=== PATIENT | male | born 1985 | race Caucasian/White ===

== ENCOUNTER → 2024-01-18 11:06 | Outpatient (CLI) | payer OTHER, SELFPAY ==
--- NOTE | 2024-01-18 11:08 | DI.MRI.S_ITS ---
PROCEDURE: MR SHOULDER RT WO CON INDICATIONS: Bicipital tendinitis, right shoulder TECHNIQUE: Noncontrast oblique coronal T2 fast spin echo with fat saturation, oblique sagittal T1 spin echo and T2 fast spin echo with fat saturation, axial T1 spin echo and T2 fast spin echo with fat saturation through the shoulder. COMPARISON: None. FINDINGS: Image quality: Excellent. Rotator cuff: the supraspinatus and the infraspinatus are unremarkable. The teres minor is unremarkable. The subscapularis is unremarkable. No muscle edema or fatty atrophy. Bones and bursae: Mild to moderate degenerative changes of the acromioclavicular joint. Type 2 acromion. No os acromial. Trace subacromial/subdeltoid bursitis. Mild subchondral cystic changes in the greater tuberosity, reactive. No focal chondral defect in the glenohumeral joint. Capsule and soft tissues: Tear of the anterior superior labrum with a 3 mm paralabral cyst (series 6, image 9). Tear of the posterior labrum as well. Mild tenosynovitis of the extra-articular biceps tendon. The intra-articular biceps tendon is intact. No significant glenohumeral effusion. Thickening of the glenohumeral ligament, concerning for adhesive capsulitis. IMPRESSION: 1. Xcao-ge-mbwrriib degenerative changes of the acromioclavicular joint. Trace subacromial/subdeltoid bursitis. 2. Labral tear with a small paralabral cyst. 3. Mild tenosynovitis of the extra-articular biceps tendon. 4. Findings suggestive of adhesive capsulitis. Dictated by: Patricia Mejía M.D. on 01/18/2024 at 19:39 Approved by: Patricia Mejía M.D. on 01/18/2024 at 19:46
== END ==
PROVIDERS: PCP Family Medicine; Referring Provider Physical Medicine & Rehabilitation Pain Medicine; Visit Provider Physical Medicine & Rehabilitation Pain Medicine
DX: S43.431A Superior glenoid labrum lesion of right shoulder, initial encounter (principal); M75.21 Bicipital tendinitis, right shoulder; M65.811 Other synovitis and tenosynovitis, right shoulder
CPT/HCPCS: 73221

== ENCOUNTER → 2024-02-16 14:43 | Outpatient (CLI) | payer OTHER, SELFPAY ==
--- NOTE | 2024-02-16 14:45 | DI.RAD.S_ITS ---
PROCEDURE: XR LUMBAR SPINE 2-3V INDICATIONS: History of fall in 2020; chronic low back pain TECHNIQUE: 3 views of the lumbar spine were acquired. COMPARISON: None. FINDINGS: Bones: 5 fxo-bve-igwryxj vertebrae are present. There is normal bony alignment. No vertebral body compression fractures. No suspicious bony lesions. Soft tissues: Overlying bowel gas pattern is normal. Large stool burden. No suspicious soft tissue calcifications. IMPRESSION: No acute osseous abnormalities. No significant degenerative changes. Dictated by: Esteban Healy M.D. on 02/16/2024 at 16:56 Approved by: Esteban Healy M.D. on 02/16/2024 at 16:57
--- NOTE | 2024-02-16 14:45 | DI.RAD.S_ITS ---
PROCEDURE: XR KNEE LT 3V INDICATIONS: History of fall in 2020; chronic bilateral knee pain TECHNIQUE: 3 views of the knee were acquired. COMPARISON: None. FINDINGS: Bones: No fractures or dislocations. No suspicious bony lesions. Soft tissues: Small joint effusion. No suspicious soft tissue calcifications. IMPRESSION: No acute osseous abnormality. If pain persists with conservative management, consider repeat x-ray in 10-14 days or cross-sectional imaging. Dictated by: Esteban Healy M.D. on 02/16/2024 at 16:55 Approved by: Esteban Healy M.D. on 02/16/2024 at 16:56
--- NOTE | 2024-02-16 14:45 | DI.RAD.S_ITS ---
PROCEDURE: XR KNEE RT 3V INDICATIONS: History of fall in 2020; chronic bilateral knee pain TECHNIQUE: 3 views of the knee were acquired. COMPARISON: None. FINDINGS: Bones: No fractures or dislocations. No suspicious bony lesions. Soft tissues: Trace joint effusion. No suspicious soft tissue calcifications. IMPRESSION: No acute osseous abnormality. If pain persists with conservative management, consider repeat x-ray in 10-14 days or cross-sectional imaging. Dictated by: Esteban Healy M.D. on 02/16/2024 at 16:56 Approved by: Esteban Healy M.D. on 02/16/2024 at 16:56
[2024-02-16 15:46] LABS: Add Manual Diff / Slide Review NO; Basophils Absolute Auto 0 /uL (0-100); Basophils Percent Auto 1.1 % (0-2); Eosinophils Absolute Auto 100 /uL (0-450); Eosinophils Percent Auto 2.8 % (2-4); Hematocrit 38.3 % (41-53); Hemoglobin 13.2 g/dL (13.5-17.5); Lymphocytes Absolute Auto 1800 /uL (1100-4500); Lymphocytes Percent Auto 45.8 % (25-40); Mean Corpuscular HGB Conc 34.4 % (30-36); Mean Corpuscular Hemoglobin 29.9 PG (26-34); Mean Corpuscular Volume 86.8 fL (80-100); Monocytes Absolute Auto 400 /uL (0-900); Monocytes Percent Auto 10.4 % (3-14); Neutrophils Absolute Auto 1600 /uL (1500-7000); Neutrophils Percent Auto 39.9 % (50-75); Platelet Count 318 X10^3/uL (150-400); Red Blood Cell Count 4.42 X10^6/uL (4.5-5.9); White Blood Cell Count 3.9 X10^3/uL (4.5-11.0)
[2024-02-16 15:56] LABS: HEMOLYSIS < 15 (0-50); Iron 105 ug/dL (49-181)
[2024-02-16 16:07] LABS: Percent Iron Saturation 25 % (20-50); Total Iron Binding Capacity 420 ug/dL (261-462); Transferrin 314 mg/dL (206-381)
[2024-02-16 16:46] LABS: Vitamin B12 813 pg/mL (239-931)
== END ==
PROVIDERS: PCP Family Medicine; Referring Provider Physician Assistant; Visit Provider Physician Assistant
DX: M25.561 Pain in right knee (principal); M25.562 Pain in left knee; R79.89 Other specified abnormal findings of blood chemistry; Z78.9 Other specified health status
CPT/HCPCS: 72100; 73562; 82607; 83540; 83550; 85025

== ENCOUNTER 2024-02-17 16:52 | Emergency (ER) | payer OTHER, SELFPAY ==
[2024-02-17 16:56] VITALS: BP 116/68; PULSE 68; RESP 16; TEMP 36.3; O2SAT 99; BMI 29.2
--- NOTE | 2024-02-17 17:16 | EKG_ITS ---
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
[2024-02-17 18:14] LABS: Add Manual Diff / Slide Review NO; Basophils Absolute Auto 0 /uL (0-100); Basophils Percent Auto 0.7 % (0-2); Eosinophils Absolute Auto 100 /uL (0-450); Eosinophils Percent Auto 2.4 % (2-4); Hematocrit 38.4 % (41-53); Hemoglobin 13.1 g/dL (13.5-17.5); Lymphocytes Absolute Auto 2000 /uL (1100-4500); Lymphocytes Percent Auto 39.2 % (25-40); Mean Corpuscular HGB Conc 34.2 % (30-36); Mean Corpuscular Hemoglobin 29.7 PG (26-34); Mean Corpuscular Volume 86.8 fL (80-100); Monocytes Absolute Auto 500 /uL (0-900); Monocytes Percent Auto 10.8 % (3-14); Neutrophils Absolute Auto 2300 /uL (1500-7000); Neutrophils Percent Auto 46.9 % (50-75); Platelet Count 299 X10^3/uL (150-400); Red Blood Cell Count 4.42 X10^6/uL (4.5-5.9); Red Cell Distribution Width 14.4 % (11.6-14.8)
[2024-02-17] MEDS: ONDANSETRON 4 MG ODT SL (18:20)
--- NOTE | 2024-02-17 18:22 | PC.NURSE ---
Patient developed some nausea. Provider aware and odt Zofran was ordered.
[2024-02-17 18:27] LABS: Bacteria Urine Occasional (0-1); Culture Indicated Urine Cult Not Indicated; RBC Urine 1-5/HPF (0-5/HPF); Squamous Epithelial Cell Urine 0-1 /HPF (0-5/HPF); Urine Volume 10mL (spun); WBC Urine 0-1/HPF (0-5/HPF)
[2024-02-17 18:27] LABS: Alanine Aminotransferase 22 IU/L (<50); Albumin 4.6 g/dL (3.5-5.0); Albumin Globulin Ratio 1.8 (1.0-2.8); Alkaline Phosphatase 56 U/L (38-126); Aspartate Aminotransferase 28 IU/L (17-59); Bilirubin Total 0.6 mg/dL (0.2-1.3); Blood Urea Nitrogen 18 mg/dL (9-20); Calcium 9.2 mg/dL (8.4-10.2); Carbon Dioxide 27 mmol/L (22-32); Chloride 104 mmol/L (98-107); Creatine Kinase 291 U/L (55-170); Estimated Glomerular Filt Rate > 60 mL/min (>60); Globulin 2.6 g/dL (1.7-4.1); Glucose 92 mg/dL (70-100); HEMOLYSIS < 15 (0-50); Potassium 4.7 mmol/L (3.4-5.1); Sodium 138 mmol/L (137-145); Total Protein 7.2 g/dL (6.3-8.2)
[2024-02-17 18:38] LABS: Troponin I < 0.012 ng/mL (0.01-0.034)
[2024-02-17 18:59] VITALS: BP 107/74; PULSE 59; RESP 14; O2SAT 99
== END 2024-02-17 18:58 | disposition home or self-care (01) ==
PROVIDERS: Emergency Provider Registered Nurse; PCP Family Medicine
DX: T75.4XXA Electrocution, initial encounter (principal); X58.XXXA Exposure to other specified factors, initial encounter
CPT/HCPCS: 36415; 80053; 81003; 81015; 82550; 84484; 85025; 87086; 93005; 99283; 99284

== ENCOUNTER → 2024-03-28 17:15 | Outpatient (CLI) | payer OTHER, SELFPAY ==
[2024-03-28 18:07] LABS: Add Manual Diff / Slide Review NO; Basophils Absolute Auto 0 /uL (0-100); Basophils Percent Auto 1.3 % (0-2); Eosinophils Absolute Auto 100 /uL (0-450); Eosinophils Percent Auto 3.1 % (2-4); Hematocrit 38.6 % (41-53); Hemoglobin 13.5 g/dL (13.5-17.5); Lymphocytes Absolute Auto 1800 /uL (1100-4500); Lymphocytes Percent Auto 48.1 % (25-40); Mean Corpuscular HGB Conc 34.9 % (30-36); Mean Corpuscular Hemoglobin 30.6 PG (26-34); Mean Corpuscular Volume 87.5 fL (80-100); Monocytes Absolute Auto 400 /uL (0-900); Monocytes Percent Auto 10.2 % (3-14); Neutrophils Absolute Auto 1400 /uL (1500-7000); Neutrophils Percent Auto 37.3 % (50-75); Platelet Count 305 X10^3/uL (150-400); Red Blood Cell Count 4.41 X10^6/uL (4.5-5.9); Red Cell Distribution Width 14.1 % (11.6-14.8); White Blood Cell Count 3.7 X10^3/uL (4.5-11.0)
== END ==
PROVIDERS: PCP Family Medicine; Referring Provider Family Medicine; Visit Provider Family Medicine
DX: D64.9 Anemia, unspecified (principal); D72.9 Disorder of white blood cells, unspecified
CPT/HCPCS: 36415; 85025

== ENCOUNTER → 2024-04-07 11:44 | Outpatient (CLI) | payer OTHER, SELFPAY ==
[2024-04-07 12:48] LABS: Influenza A - CEPHEID Flu A NEGATIVE (NEGATIVE); Influenza B - CEPHEID Flu B NEGATIVE (NEGATIVE); Respiratory Syncytial Virus Negative (Negative)
[2024-04-07 14:23] LABS: COVID-19 CEPHEID 4-PLEX PCR Negative (Negative)
== END ==
PROVIDERS: PCP Family Medicine; Referring Provider Family Medicine; Visit Provider Physician Assistant Surgical
DX: R05.1 Acute cough (principal); J02.9 Acute pharyngitis, unspecified
CPT/HCPCS: 0241U; 87070

== ENCOUNTER → 2024-05-24 13:37 | Outpatient (CLI) | payer OTHER, SELFPAY ==
--- NOTE | 2024-05-24 14:00 | DI.MRI.S_ITS ---
PROCEDURE: MR LUMBAR SPINE WO CON INDICATIONS: chronic lower back pain TECHNIQUE: Noncontrast sagittal T1 spin echo and T2 fast echo, sagittal STIR, and T2 fast spin echo through the lumbar spine. In cases with scoliosis, additional coronal T2 fast spin echo may be performed. COMPARISON: None. FINDINGS: Image quality: Excellent Straightening of the lumbar spine. Vertebral body height and lumbar spine are well maintained. No significant disc desiccation or disc bulge. Marrow signal is normal for age. Conus terminates at the level of T12-L1, and is unremarkable. Right neural foraminal stenosis: Mild at L4-5. Left neural foraminal stenosis: Mild at L4-5 and L5-S1. Axial images: T12-L1: No central canal stenosis. L1-2: Mild bilateral facet arthropathy. No central canal stenosis. L2-3: Mild bilateral facet arthropathy. No central canal stenosis. L3-4: Mild bilateral facet arthropathy. No central canal stenosis. L4-5: Mild bilateral facet arthropathy. Right ligamentum flava hypertrophy. No central canal stenosis. L5-S1: Moderate bilateral facet arthropathy. No central canal stenosis. T1 and T2 hypointense lesion in the left posterior iliac wing, nonspecific and may represent a bone island. Visualized sacrum is intact. No abdominal aortic aneurysm. Small T2 hyperintense lesion in the right kidney, incompletely characterized and may represent a small renal cyst. IMPRESSION: 1. Multilevel degenerative changes of the lumbar spine, most pronounced at L4-5, where there is mild bilateral neural foraminal stenosis. 2. No central canal stenosis in the lumbar spine. Dictated by: Patricia Mejía M.D. on 05/24/2024 at 17:33 Approved by: Patricia Mejía M.D. on 05/24/2024 at 17:40
--- NOTE | 2024-05-24 14:00 | DI.MRI.S_ITS ---
PROCEDURE: MR KNEE RT WO CON INDICATIONS: chronic right knee pain TECHNIQUE: Noncontrast sagittal PD fast spin echo and T2 fast spin echo with fat saturation, sagittal 3-D FLASH with fat saturation; coronal T1 spin echo and PD fast spin echo with fat saturation, and axial PD fast spin echo with fat saturation through the knee. COMPARISON: [facility], CR, XR KNEE RT 3V, 02/16/2024, 15:14. FINDINGS: Image quality: Excellent. Menisci: The medial and lateral menisci demonstrate normal morphology and internal signal. The meniscal root ligaments appear intact. Cruciate ligaments: The anterior and posterior cruciate ligaments appear intact. Medial structures: The medial collateral ligament appears intact. The posterior oblique ligament, semimembranosus tendon insertions, oblique popliteal ligament, and meniscocapsular junction appear intact. Visualized portions of the pes anserinus tendons appear normal. No abnormal bursal fluid. Lateral structures: The lateral collateral ligament, long and short heads of the biceps femoris tendon appear intact. The popliteus tendon appears normal; the popliteofibular ligament appears intact. The posterosuperior and anteroinferior popliteomeniscal fascicles appear intact. The arcuate and fabellofibular ligaments appear intact, on either side of the lateral inferior geniculate artery. Iliotibial band appears normal. Anterior structures: The quadriceps tendon is intact. Mild tendinosis of the proximal patellar tendon. Mild lateral tilt of the patella. Mild suprapatellar fat pad edema. Overall, findings concerning for patellar maltracking. Bones and cartilage: There is mild chondral irregularity in the lateral patellar facet, with mild subchondral cystic changes. Cartilage of the trochlea is well maintained. The cartilage of the medial and the lateral compartments are well maintained. No acute fracture. Joint space: There is physiologic knee joint fluid. No Ratliff's cyst. Normal appearing synovial plicae are incidentally noted. IMPRESSION: 1. 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 Dictated by: Patricia Mejía M.D. on 05/24/2024 at 17:40 Approved by: Patricia Mejía M.D. on 05/24/2024 at 17:51
== END ==
PROVIDERS: PCP Family Medicine; Referring Provider Family Medicine; Visit Provider Family Medicine
DX: M47.817 Spondylosis without myelopathy or radiculopathy, lumbosacral region (principal); M48.061 Spinal stenosis, lumbar region without neurogenic claudication; M47.816 Spondylosis without myelopathy or radiculopathy, lumbar region; M54.50 Low back pain, unspecified; M25.561 Pain in right knee; G89.29 Other chronic pain
CPT/HCPCS: 72148; 73721

== ENCOUNTER → 2024-07-18 15:13 | Outpatient (CLI) | payer OTHER, SELFPAY ==
--- NOTE | 2024-07-18 15:30 | DI.NM.S_ITS ---
PROCEDURE: NM EXERCISE TREADMILL NON NUC COMPARISON: None. INDICATIONS: palpitations FINDINGS: the patient exercised for 12 minutes and 43 seconds, reaching 103% of maximum predicted heart rate. 12.8METS, ANTOINE -12%. Normal BP response to exercise. No angina and no diagnostic ST changes during exercise or recovery. Rare PVCs present. IMPRESSION: Low risk, normal treadmill ECG only stress test from inducible ischemia standpoint. Good exercise tolerance (12.8METs, ANTOINE -12%) and no angina symptoms during the study. Dictated by: González Tan MD on 07/18/2024 at 16:53 Approved by: González Tan MD on 07/18/2024 at 16:55
== END ==
PROVIDERS: PCP Family Medicine; Referring Provider Family Medicine; Visit Provider Family Medicine
DX: R00.2 Palpitations (principal)
CPT/HCPCS: 93017

== ENCOUNTER → 2024-08-04 14:14 | Outpatient (CLI) | payer OTHER, SELFPAY | PROVIDERS: PCP Family Medicine; Referring Provider Nurse Practitioner Family; Visit Provider Nurse Practitioner Family | DX: R10.9 Unspecified abdominal pain (principal) | CPT/HCPCS: 87086 ==

== ENCOUNTER 2024-08-05 17:32 | Emergency (ER) | payer OTHER, SELFPAY ==
[2024-08-05] VITALS (9 sets, daily range): BP systolic 114–116; BP diastolic 57–70; PULSE 61–88; RESP 18; TEMP 36.4; O2SAT 92–100; BMI 30.7
--- NOTE | 2024-08-05 18:06 | ED.ABDPAIN ---
HPI - Abdominal Pain General Chief Complaint: Abdominal Pain Stated Complaint: Abdominal pain RT side, appendix removed Time Seen by Provider: 08/05/24 17:52 Source: patient Mode of arrival: Ambulatory History of Present Illness HPI narrative: 39-year-old male with history of GERD presents by private vehicle from home for 3-4 days of right-sided abdominal pain and reflux. Pain is aching, intermittent, occasionally radiates to his groin, leg, and back. He has been followed by his primary care doctor for his reflux, but his medications do not seem to be working. Yesterday patient went to the walk-in clinic and was prescribed polyethylene glycol and zofran, but he continues to have pain, and since it is the weekend he was referred to the ED for evaluation. Has also been taking protonix and TUMS for GERD with minimal relief. Per previous PCP notes an EGD is being considered for the future. Related Data Home Medications Medication Instructions Recorded Confirmed ibuprofen 200 mg tablet 600 mg PO Q6H PRN 02/16/24 08/04/24 atomoxetine 60 mg capsule 60 mg PO QAM 04/07/24 08/04/24 bupropion HCl 150 mg 24 hr tablet, 150 mg PO DAILY 04/07/24 08/04/24 extended release carboxymethylcellulose sodium 0.5 drp EYE-BOTH 04/07/24 08/04/24 % eye drops dextroamphetamine-amphetamine ER 1 cap PO QAM 04/07/24 08/04/24 20 mg 24hr capsule,extend release dextroamphetamine-amphetamine ER PO QAM 08/04/24 08/04/24 10 mg 24hr capsule,extend release Previous Rx's Medication Instructions Recorded tadalafil 20 mg tablet (Cialis) 20 mg PO DAILY PRN sexual activity 03/30/24 #20 tabs dextran 70-hypromellose eye drops 1 drp EYE-BOTH BID #15 mL 04/04/24 (Artificial Tears (dextran 70-hypromellose) eye drops) carboxymethylcellulose sodium 1 % 1 drp EYE-BOTH DAILY PRN dry 04/07/24 eye gel in a dropperette (Refresh eye(s) #90 ea Celluvisc) naproxen 500 mg tablet 500 mg PO BID PRN pain #30 tabs 06/23/24 ondansetron 4 mg disintegrating 4 mg PO Q6H PRN nausea and 06/23/24 tablet vomiting #14 tabs sildenafil 100 mg tablet 100 mg PO DAILY PRN sexual 06/23/24 activity #30 tabs tramadol 50 mg tablet 50 mg PO BID PRN pain #30 tabs 06/24/24 vardenafil 20 mg tablet 20 mg PO DAILY PRN sexual activity 06/29/24 #30 tabs pantoprazole 40 mg tablet,delayed 40 mg PO DAILY #30 tabs 07/21/24 release polyethylene glycol 3350 17 17 g PO DAILY PRN constipation 07/21/24 gram/dose oral powder (Miralax) #238 grams omeprazole 40 mg capsule,delayed 40 mg PO DAILY #30 caps 08/04/24 release ondansetron 4 mg disintegrating 4 mg PO Q8H PRN nausea and 08/04/24 tablet vomiting #14 tabs dicyclomine 20 mg tablet 20 mg PO TID #30 tabs 08/05/24 Allergies Allergy/AdvReac Type Severity Reaction Status Date / Time No Known Drug Allergies Allergy Verified 08/05/24 17:49 Patient History Medical History Dyspepsia Palpitations Chronic lower back pain Chronic pain of right knee Right shoulder pain Tinnitus Generalized anxiety disorder Disordered sleep Patellar tendinitis of right knee Epistaxis Erectile dysfunction Social History Smoking Status: Never smoker Smoking Status: Never smoker Exam Initial Vital Signs Initial Vital Signs: Vital Signs Temperature 97.6 F 08/05/24 17:44 Pulse Rate 78 08/05/24 17:44 Respiratory Rate 18 08/05/24 17:44 Blood Pressure 116/69 08/05/24 17:44 Pulse Oximetry 99 08/05/24 17:44 Oxygen Delivery Method Room Air 08/05/24 17:44 Const: Awake, alert, no acute distress, nontoxic appearing Cardiac: regular rate, regular rhythm RESP: unlabored, clear bilaterally, no wheezing GI: Soft, RLQ tenderness to deep palpation without rebound or guarding : [employer] fore[employer] present, normal external genitalia, no obvious masses Skin: Warm, Dry, intact, no rashes Neuro: AO x3, CN II-XII grossly intact, moves all extremities Course Orders Ordered: ED Orders 08/05/24 18:07 Complete Blood Count AUTO DIFF Stat Comprehensive Metabolic Panel Stat Lipase Stat 08/05/24 18:26 CT abdomen pelvis wo con Stat 08/05/24 19:24 US scrotum Stat Discontinued Medications Ketorolac Tromethamine (Ketorolac 30 Mg/Ml Vial) 15 mg IV NOW ONE Stop: 08/05/24 18:28 Last Admin: 08/05/24 18:42 Dose: 15 mg Documented By: [facility] Ondansetron HCl (Ondansetron 4 Mg/2 Ml Inj) 4 mg IV NOW PRN PRN Reason: Nausea And Vomiting Last Admin: 08/05/24 18:42 Dose: 4 mg Documented By: [facility] Ondansetron HCl (Ondansetron 4 Mg Odt) 4 mg PO NOW PRN PRN Reason: Nausea And Vomiting Vital Signs Vital signs: Vital Signs - 8 hr 08/05/24 18:37 08/05/24 18:38 08/05/24 18:38 Pulse Rate 88 Blood Pressure 114/57 L Pulse Oximetry 92 99 Oxygen Delivery Method Room Air 08/05/24 20:08 08/05/24 20:09 08/05/24 20:09 Pulse Rate 66 67 Blood Pressure 115/67 Pulse Oximetry 100 99 Oxygen Delivery Method Room Air 08/05/24 20:34 08/05/24 21:00 08/05/24 21:21 Pulse Rate 80 62 61 Blood Pressure Pulse Oximetry 98 96 Oxygen Delivery Method 08/05/24 21:26 Pulse Rate Blood Pressure 114/70 Pulse Oximetry Oxygen Delivery Method MDM - Abdominal Pain Differential Diagnosis Differential diagnosis: Likely abdominal pain, calculus of kidney and constipation Lab Data 08/05/24 18:07 08/05/24 18:07 Labs: Lab Results 08/05/24 Range/Units 18:07 WBC 3.6 L (4.5-11.0) X10^3/uL RBC 4.64 (4.5-5.9) X10^6/uL Hgb 14.1 (13.5-17.5) g/dL Hct 41.0 (41-53) % MCV 88.3 (80-100) fL MCH 30.3 (26-34) PG MCHC 34.3 (30-36) % RDW 13.5 (11.6-14.8) % Plt Count 267 (150-400) X10^3/uL Neut % (Auto) 42.4 L (50-75) % Lymph % (Auto) 43.0 H (25-40) % Mcclain % (Auto) 9.9 (3-14) % Eos % (Auto) 3.7 (2-4) % Baso % (Auto) 1.0 (0-2) % Neut # (Auto) 1500 (3847-3715) /uL Lymph # (Auto) 1600 (6818-4097) /uL [place]clain # (Auto) 400 (0-900) /uL Eos # (Auto) 100 (0-450) /uL Baso # (Auto) 0 (0-100) /uL Sodium 139 (137-145) mmol/L Potassium 3.7 (3.4-5.1) mmol/L Chloride 106 (98-107) mmol/L Carbon Dioxide 26 (22-32) mmol/L BUN 17 (9-20) mg/dL Creatinine 1.12 (0.66-1.25) mg/dL Estimated GFR > 60 (>60) mL/min BUN/Creatinine Ratio 15.2 (6-22) Glucose 94 (70-100) mg/dL Calcium 8.7 (8.4-10.2) mg/dL Total Bilirubin 0.4 (0.2-1.3) mg/dL AST 34 (17-59) IU/L ALT 36 (<50) IU/L Alkaline Phosphatase 56 (38-126) U/L Total Protein 7.0 (6.3-8.2) g/dL Albumin 4.5 (3.5-5.0) g/dL Globulin 2.5 (1.7-4.1) g/dL Albumin/Globulin Ratio 1.8 (1.0-2.8) Lipase 72 (23-300) U/L Point of care testing: Urine Dip Bedside Urine Glucose Negative Bedside Urine Bilirubin - Negative Bedside Urine Ketone - Negative Urine Specific [place] 1.020 Bedside Urine Occult Blood +++ Bedside Urine pH 6.5 Bedside Urine Protein - Negative Bedside Urine Urobilinogen - Negative Bedside Urine Nitrite - Negative Bedside Urine Leukocytes - Negative Esterase Imaging Data CT scan - abdomen/pelvis: Radiologist's Impression: PROCEDURE: CT ABDOMEN PELVIS WO CON INDICATIONS: RLQ PAIN, PREV APPY, POSS STONE? TECHNIQUE: Axial sections were acquired from the lung bases to the pubic symphysis. Coronal and sagittal reformats were performed. For radiation dose reduction, the following was used: automated exposure control, adjustment of mA and/or kV according to patient size. COMPARISON: None. FINDINGS: Image quality: Diagnostic. Lower Chest: No significant findings. URINARY: Right Kidney: No stones or hydronephrosis. Right Ureter: No hydroureter. Left Kidney: No stones or hydronephrosis. Left Ureter: No hydroureter. Bladder: Normal wall thickness. No stones. ABDOMEN: Liver: No contour-deforming solid mass. Gallbladder: No radiopaque gallstones or wall thickening. Biliary ducts: No biliary dilation. Pancreas: No ductal dilation. Spleen: Size is within normal limits. Adrenal Glands: No adrenal nodules. Stomach and Bowel: Normal colonic caliber, without significant wall thickening. Stool burden is large. There is fecalization of the terminal ileum. Peritoneum: No abnormal intraperitoneal fluid. No free air. Ventral Wall: No hernia. Abdominal Nodes: No enlarged retroperitoneal or mesenteric lymph nodes. Vessels: Aorta and inferior vena cava are normal in size. PELVIS: Pelvic Organs: Unremarkable. Pelvic Nodes: Unremarkable. Miscellaneous: No inguinal hernias are seen. Bones: Unremarkable. IMPRESSION: No obstructing stones or hydronephrosis. Findings suggestive of chronic constipation and increased bowel transit times. Dictated by: Nicol Rodriguez M.D. on 08/05/2024 at 18:00 Approved by: Nicol Rodriguez M.D. on 08/05/2024 at 18:03 US - abdomen: Radiologist's Impression: PROCEDURE: US SCROTUM INDICATIONS: BILAT SCROTAL PAIN, R>L TECHNIQUE: Real-time scanning was performed of the scrotum and testicles, with image documentation. Color and pulse Doppler interrogation was performed of both testicles. COMPARISON: None. FINDINGS: Right: Testicle is normal in size at 4.8 x 3.0 x 2.1 cm, and homogenous in echotexture. Epididymis is normal in overall size and morphology. No hydrocele or varicoceles. Overlying scrotal skin is normal in thickness. Left: Testicle is normal in size at 4.5 x 2.7 x 2.1 cm, and homogeneous in echotexture. Epididymis is normal in overall size and morphology. No hydrocele or varicoceles. Overlying scrotal skin is normal in thickness. Doppler: Color and pulse Doppler demonstrate normal and symmetric arterial flow in both testicles. Inguinal regions: Right inguinal hernia containing partially reducible fat with a wall defect measuring 1.3 cm. No left inguinal hernia. IMPRESSION: 1. Right inguinal hernia containing partially reducible fat. 2. Otherwise unremarkable scrotal ultrasound. No testicular mass, testicular torsion, epididymitis or orchitis. Dictated by: Tim Reed M.D. on 08/05/2024 at 21:13 Approved by: Tim Reed M.D. on 08/05/2024 at 21:15 [facility] Narrative Medical decision making narrative: Well-appearing patient with several days of ongoing symptoms. Followed currently by his PCP for acid reflux, now having right-sided abdominal pain. Already went to the walk-in clinic, medications provided at that time did not give him relief. Abdomen soft, no peritoneal signs. He was tender to deep palpation in the right lower quadrant with radiation into his testicles. On genital exam there was no obvious abnormality or hernia. Consider ongoing constipation issues versus hernia versus scrotal pathology. Laboratory work ordered, CT imaging ordered initially for assessment of possible renal stones. Laboratory work reviewed, unremarkable. Patient reports pain improvement after Toradol administration. CT imaging of the abdomen and pelvis shows findings of chronic constipation, no stones or other etiology for right-sided abdominal pain. Ultrasound of the scrotum and contents showed that patient does have small hernia present. On exam there was no hernia, however it may not has been present on initial exam. Hernia also not seen on CT imaging. Patient informed of all lab and imaging findings, Recommended ongoing discussion with PCP for his GERD, as well as general surgery follow up for his hernia. Patient requested medication rx for abdominal spasms, and so bentyl sent to pharmacy of choice. Discharge Plan Departure Patient Disposition: Home Clinical Impression: Abdominal pain, Inguinal hernia Instructions: DI for Groin Hernia Activity Restrictions/Additional Instructions: YOUR LABORATORY WORK TODAY WAS NORMAL. YOUR CT SHOWED THAT YOU HAVE SOME CONSTIPATION, AND ON ULTRASOUND IT WAS IDENTIFIED THAT YOU HAVE A SMALL RIGHT-SIDED HERNIA. CALL AND MAKE AN APPOINTMENT WITH A GENERAL SURGEON TO DISCUSS POSSIBILITIES OF FIXING THE HERNIA. Prescriptions: New dicyclomine 20 mg tablet 20 mg PO TID Qty: 30 0RF No Action carboxymethylcellulose sodium 0.5 % drops EYE-BOTH dextroamphetamine-amphetamine 20 mg capsule,extended release 24hr 1 cap PO QAM atomoxetine 60 mg capsule 60 mg PO QAM bupropion HCl 150 mg tablet extended release 24 hr 150 mg PO DAILY dextroamphetamine-amphetamine 10 mg capsule,extended release 24hr PO QAM omeprazole 40 mg capsule,delayed release(DR/EC) 40 mg PO DAILY Qty: 30 0RF ondansetron 4 mg tablet,disintegrating 4 mg PO Q8H PRN (Reason: nausea and vomiting) Qty: 14 0RF Artificial Tears([id number]) Drops 1 drp EYE-BOTH BID Qty: 15 2RF carboxymethylcellulose sodium [Refresh Celluvisc] 1 % dropperette,gel 1 drp EYE-BOTH DAILY PRN (Reason: dry eye(s)) Qty: 90 0RF naproxen 500 mg tablet 500 mg PO BID PRN (Reason: pain) Qty: 30 1RF sildenafil 100 mg tablet 100 mg PO DAILY PRN (Reason: sexual activity) Qty: 30 1RF Rx Instructions: Take one hour prior to sexual activity ondansetron 4 mg tablet,disintegrating 4 mg PO Q6H PRN (Reason: nausea and vomiting) Qty: 14 3RF tramadol 50 mg tablet 50 mg PO BID PRN (Reason: pain) Qty: 30 1RF ibuprofen 200 mg tablet 600 mg PO Q6H PRN tadalafil [Cialis] 20 mg tablet 20 mg PO DAILY PRN (Reason: sexual activity) Qty: 20 1RF Rx Instructions: administer approximately 30min before sexual activity; do not use more than 1 dose per 24hrs vardenafil 20 mg tablet 20 mg PO DAILY PRN (Reason: sexual activity) Qty: 30 2RF pantoprazole 40 mg tablet,delayed release (DR/EC) 40 mg PO DAILY Qty: 30 11RF polyethylene glycol 3350 [Miralax] 17 gram/dose powder 17 g PO DAILY PRN (Reason: constipation) Qty: 238 2RF Referrals: Mauro Escobedo MD [Physician] - Jann aBires DO [Primary Care Provider] - Stand Alone Forms: Patient Portal/API/Survey
[2024-08-05 18:17] LABS: Add Manual Diff / Slide Review NO; Basophils Absolute Auto 0 /uL (0-100); Eosinophils Absolute Auto 100 /uL (0-450); Eosinophils Percent Auto 3.7 % (2-4); Hemoglobin 14.1 g/dL (13.5-17.5); Lymphocytes Absolute Auto 1600 /uL (1100-4500); Mean Corpuscular HGB Conc 34.3 % (30-36); Mean Corpuscular Hemoglobin 30.3 PG (26-34); Mean Corpuscular Volume 88.3 fL (80-100); Monocytes Absolute Auto 400 /uL (0-900); Monocytes Percent Auto 9.9 % (3-14); Neutrophils Absolute Auto 1500 /uL (1500-7000); Neutrophils Percent Auto 42.4 % (50-75); Platelet Count 267 X10^3/uL (150-400); Red Blood Cell Count 4.64 X10^6/uL (4.5-5.9); Red Cell Distribution Width 13.5 % (11.6-14.8); White Blood Cell Count 3.6 X10^3/uL (4.5-11.0)
[2024-08-05 18:25] LABS: Alanine Aminotransferase 36 IU/L (<50); Albumin 4.5 g/dL (3.5-5.0); Albumin Globulin Ratio 1.8 (1.0-2.8); Alkaline Phosphatase 56 U/L (38-126); Aspartate Aminotransferase 34 IU/L (17-59); BUN Creatinine Ratio 15.2 (6-22); Bilirubin Total 0.4 mg/dL (0.2-1.3); Blood Urea Nitrogen 17 mg/dL (9-20); Calcium 8.7 mg/dL (8.4-10.2); Carbon Dioxide 26 mmol/L (22-32); Chloride 106 mmol/L (98-107); Estimated Glomerular Filt Rate > 60 mL/min (>60); Globulin 2.5 g/dL (1.7-4.1); Glucose 94 mg/dL (70-100); HEMOLYSIS 20 (0-50); Lipase 72 U/L (23-300); Potassium 3.7 mmol/L (3.4-5.1); Sodium 139 mmol/L (137-145)
--- NOTE | 2024-08-05 18:26 | DI.CT.S_ITS ---
PROCEDURE: CT ABDOMEN PELVIS WO CON INDICATIONS: RLQ PAIN, PREV APPY, POSS STONE? TECHNIQUE: Axial sections were acquired from the lung bases to the pubic symphysis. Coronal and sagittal reformats were performed. For radiation dose reduction, the following was used: automated exposure control, adjustment of mA and/or kV according to patient size. COMPARISON: None. FINDINGS: Image quality: Diagnostic. Lower Chest: No significant findings. URINARY: Right Kidney: No stones or hydronephrosis. Right Ureter: No hydroureter. Left Kidney: No stones or hydronephrosis. Left Ureter: No hydroureter. Bladder: Normal wall thickness. No stones. ABDOMEN: Liver: No contour-deforming solid mass. Gallbladder: No radiopaque gallstones or wall thickening. Biliary ducts: No biliary dilation. Pancreas: No ductal dilation. Spleen: Size is within normal limits. Adrenal Glands: No adrenal nodules. Stomach and Bowel: Normal colonic caliber, without significant wall thickening. Stool burden is large. There is fecalization of the terminal ileum. Peritoneum: No abnormal intraperitoneal fluid. No free air. Ventral Wall: No hernia. Abdominal Nodes: No enlarged retroperitoneal or mesenteric lymph nodes. Vessels: Aorta and inferior vena cava are normal in size. PELVIS: Pelvic Organs: Unremarkable. Pelvic Nodes: Unremarkable. Miscellaneous: No inguinal hernias are seen. Bones: Unremarkable. IMPRESSION: No obstructing stones or hydronephrosis. Findings suggestive of chronic constipation and increased bowel transit times. Dictated by: Nicol Rodriguez M.D. on 08/05/2024 at 18:00 Approved by: Nicol Rodriguez M.D. on 08/05/2024 at 18:03
[2024-08-05] MEDS: KETOROLAC 30 MG/ML VIAL 15 MG IV (18:42)
[2024-08-05] MEDS: ONDANSETRON 4 MG/2 ML INJ IV (18:42)
--- NOTE | 2024-08-05 19:24 | DI.US.S_ITS ---
PROCEDURE: US SCROTUM INDICATIONS: BILAT SCROTAL PAIN, R>L TECHNIQUE: Real-time scanning was performed of the scrotum and testicles, with image documentation. Color and pulse Doppler interrogation was performed of both testicles. COMPARISON: None. FINDINGS: Right: Testicle is normal in size at 4.8 x 3.0 x 2.1 cm, and homogenous in echotexture. Epididymis is normal in overall size and morphology. No hydrocele or varicoceles. Overlying scrotal skin is normal in thickness. Left: Testicle is normal in size at 4.5 x 2.7 x 2.1 cm, and homogeneous in echotexture. Epididymis is normal in overall size and morphology. No hydrocele or varicoceles. Overlying scrotal skin is normal in thickness. Doppler: Color and pulse Doppler demonstrate normal and symmetric arterial flow in both testicles. Inguinal regions: Right inguinal hernia containing partially reducible fat with a wall defect measuring 1.3 cm. No left inguinal hernia. IMPRESSION: 1. Right inguinal hernia containing partially reducible fat. 2. Otherwise unremarkable scrotal ultrasound. No testicular mass, testicular torsion, epididymitis or orchitis. Dictated by: Tim Reed M.D. on 08/05/2024 at 21:13 Approved by: Tim Reed M.D. on 08/05/2024 at 21:15
== END 2024-08-05 21:31 | disposition home or self-care (01) ==
PROVIDERS: Emergency Medicine; Emergency Provider Emergency Medicine; PCP Family Medicine
DX: R10.31 Right lower quadrant pain (principal); N50.82 Scrotal pain; K40.90 Unilateral inguinal hernia, without obstruction or gangrene, not specified as recurrent
CPT/HCPCS: 36415; 74176; 76870; 80053; 81003; 83690; 85025; 93975; 96374; 96375; 99284; J1885; J2405

== ENCOUNTER → 2024-08-16 11:34 | Outpatient (CLI) | payer OTHER, SELFPAY ==
[2024-08-16 12:32] LABS: Reticulocyte Count, Percent 1.6 % (0.9-2.6)
[2024-08-16 12:53] LABS: HEMOLYSIS < 15 (0-50); Iron 81 ug/dL (49-181)
[2024-08-16 13:05] LABS: Percent Iron Saturation 24 % (20-50); Total Iron Binding Capacity 331 ug/dL (261-462); Transferrin 294 mg/dL (206-381)
[2024-08-16 13:40] LABS: Vitamin B12 629 pg/mL (239-931)
== END ==
PROVIDERS: PCP Family Medicine; Referring Provider Family Medicine; Visit Provider Family Medicine
DX: D64.9 Anemia, unspecified (principal); D72.819 Decreased white blood cell count, unspecified; F41.1 Generalized anxiety disorder
CPT/HCPCS: 36415; 82607; 83540; 83550; 85045

== ENCOUNTER → 2024-10-12 09:44 | Outpatient (CLI) | payer OTHER, SELFPAY ==
[2024-10-12 10:42] LABS: Add Manual Diff / Slide Review NO; Basophils Absolute Auto 100 /uL (0-100); Basophils Percent Auto 2.1 % (0-2); Eosinophils Absolute Auto 100 /uL (0-450); Eosinophils Percent Auto 4.2 % (2-4); Hematocrit 43.4 % (41-53); Hemoglobin 14.6 g/dL (13.5-17.5); Lymphocytes Absolute Auto 1500 /uL (1100-4500); Lymphocytes Percent Auto 53.4 % (25-40); Mean Corpuscular HGB Conc 33.7 % (30-36); Mean Corpuscular Hemoglobin 30.3 PG (26-34); Mean Corpuscular Volume 89.9 fL (80-100); Monocytes Absolute Auto 400 /uL (0-900); Monocytes Percent Auto 12.9 % (3-14); Neutrophils Absolute Auto 800 /uL (1500-7000); Neutrophils Percent Auto 27.4 % (50-75); Platelet Count 294 X10^3/uL (150-400); Red Blood Cell Count 4.82 X10^6/uL (4.5-5.9); Red Cell Distribution Width 12.8 % (11.6-14.8); White Blood Cell Count 2.8 X10^3/uL (4.5-11.0)
[2024-10-12 10:46] LABS: Reticulocyte Count, Percent 1.4 % (0.9-2.6)
[2024-10-12 11:28] LABS: Alanine Aminotransferase 22 IU/L (<50); Albumin 4.7 g/dL (3.5-5.0); Alkaline Phosphatase 54 U/L (38-126); Aspartate Aminotransferase 25 IU/L (17-59); BUN Creatinine Ratio 7.8 (6-22); Bilirubin Total 0.6 mg/dL (0.2-1.3); Blood Urea Nitrogen 9 mg/dL (9-20); Calcium 9.5 mg/dL (8.4-10.2); Carbon Dioxide 24 mmol/L (22-32); Chloride 106 mmol/L (98-107); Estimated Glomerular Filt Rate > 60 mL/min (>60); Globulin 2.4 g/dL (1.7-4.1); Glucose 104 mg/dL (70-100); HEMOLYSIS < 15 (0-50); Lipase 76 U/L (23-300); Sodium 138 mmol/L (137-145); Total Protein 7.1 g/dL (6.3-8.2)
== END ==
PROVIDERS: PCP Family Medicine; Referring Provider Family Medicine; Visit Provider Family Medicine
DX: R10.13 Epigastric pain (principal); M25.511 Pain in right shoulder; F41.1 Generalized anxiety disorder
CPT/HCPCS: 36415; 80053; 83690; 85025; 85045

== ENCOUNTER → 2024-12-25 15:39 | Outpatient (CLI) | payer OTHER, SELFPAY | PROVIDERS: PCP Family Medicine; Referring Provider Family Medicine; Visit Provider Family Medicine | DX: D72.829 Elevated white blood cell count, unspecified (principal) | CPT/HCPCS: 36415; 86900; 86901 ==

== ENCOUNTER → 2025-01-02 10:11 | Outpatient (CLI) | payer OTHER, SELFPAY ==
[2025-01-02 10:55] LABS: Influenza A - CEPHEID Flu A NEGATIVE (NEGATIVE); Influenza B - CEPHEID Flu B NEGATIVE (NEGATIVE); Respiratory Syncytial Virus Negative (Negative)
[2025-01-02 12:38] LABS: COVID-19 CEPHEID 4-PLEX PCR Negative (Negative)
== END ==
PROVIDERS: PCP Family Medicine; Visit Provider Physician Assistant
DX: R09.81 Nasal congestion (principal)
CPT/HCPCS: 0241U

== ENCOUNTER → 2025-04-26 13:58 | Outpatient (CLI) | payer BC, SELFPAY | PROVIDERS: PCP Family Medicine | DX: F90.9 Attention-deficit hyperactivity disorder, unspecified type (principal); Z79.899 Other long term (current) drug therapy | CPT/HCPCS: 80307 ==

== ENCOUNTER → 2025-05-22 11:12 | Outpatient (CLI) | payer OTHER, SELFPAY ==
[2025-05-22 13:17] LABS: Thyroid Stimulating Hormone 1.56 uIU/mL (0.47-4.68)
== END ==
PROVIDERS: PCP Family Medicine; Referring Provider Family Medicine; Visit Provider Family Medicine
DX: E29.1 Testicular hypofunction (principal); Z13.29 Encounter for screening for other suspected endocrine disorder
CPT/HCPCS: 36415; 84402; 84403; 84443

== ENCOUNTER → 2025-07-17 09:12 | Outpatient (CLI) | payer OTHER, SELFPAY ==
[2025-07-17 09:56] LABS: Influenza A - CEPHEID Flu A NEGATIVE (NEGATIVE); Influenza B - CEPHEID Flu B NEGATIVE (NEGATIVE)
[2025-07-17 09:59] LABS: COVID-19 CEPHEID 4-PLEX PCR Negative (Negative)
== END ==
PROVIDERS: PCP Family Medicine; Referring Provider Nurse Practitioner Family; Visit Provider Nurse Practitioner Family
DX: R05.1 Acute cough (principal); J02.9 Acute pharyngitis, unspecified
CPT/HCPCS: 87070; 87637